=== PATIENT | male | born 1995 | race Caucasian/White ===

== ENCOUNTER 2023-09-20 00:47 | Emergency (ER) | payer BC, OTHER ==
[~2023-09-20] VITALS: Ht 180.3 cm; Wt 72.7 kg
[2023-09-20 01:03] VITALS: TEMP 97.8
[2023-09-20 02:00] VITALS: BP 147/71; O2SAT 98
== END 2023-09-20 02:44 | disposition home or self-care (01) ==
LOC: M ED 00:47
DX: T67.5XXA Heat exhaustion, unspecified, initial encounter (principal); F41.9 Anxiety disorder, unspecified; F12.10 Cannabis abuse, uncomplicated; Y92.9 Unspecified place or not applicable; Y93.9 Activity, unspecified; Y99.0 Civilian activity done for income or pay